=== PATIENT | female | born 1950 | race Caucasian/White ===

== ENCOUNTER → 2021-04-29 | Emergency (ER) | payer OTHER ==
[~2021-04-29] VITALS: Ht 157.5 cm; Wt 55.3 kg
[~2021-04-29] MED LIST: COZAAR25 MG; DICLOFENAC POTA50 MG PO; NORVASC5 MG; PERCOCET 5-3251 EACH PO; ZOCOR20 MG
== END | disposition home or self-care (01) ==
LOC: ER 17:46
DX: S52.592A Other fractures of lower end of left radius, initial encounter for closed fracture (principal); W18.39XA Other fall on same level, initial encounter; Y93.89 Activity, other specified; Y92.511 Restaurant or cafe as the place of occurrence of the external cause; Y99.8 Other external cause status